=== PATIENT | male | born 1980 | race Caucasian/White ===

== ENCOUNTER → 2023-05-13 | Emergency (ER) | payer OTHER ==
[~2023-05-13] MED LIST: ASPIRIN 81 MG CHEWABLE TABLET ONE; ENOXAPARIN 80 MG/0.8 ML SQ ONE; Levofloxacin 750mg IV 0 MG/0 ML BAG IV ONE; NA CHLORIDE 0.9% 1,000 ML ONE; levoFLOXacin 750 MG TAB ONE
[2023-05-13 03:28] LABS: Protime INR 1.01
[2023-05-13 03:29] LABS: Hematocrit 44.2 % (39.6-49.0); Lymphocytes % 32.8 % (15.3-44.8); MCV 91.6 fL (80-100); MPV 6.9 fL (7.6-11.3); Platelets 287 thou/uL (152-406); RBC Red Blood Cell Count 4.83 M/uL (4.33-5.43)
[2023-05-13 05:04] LABS: ALT/SGPT 18 U/L (16-61); AST/SGOT 12 U/L (15-37); Albumin 3.7 g/dL (3.4-5.0); Alkaline Phosphatase 65 U/L (45-117); BUN Blood Urea Nitrogen 17 mg/dL (7-18); Bicarbonate 29 mEq/L (21-32); Bilirubin Direct 0.1 mg/dL (0-0.2); Bilirubin Indirect, Calculated 0.5 mg/dL (0.2-0.8); Bilirubin Total 0.6 mg/dL (0.2-1.0); C-Reactive Protein < 2.90 mg/L (<3.00); Glomerular Filtration Rate 96 ml/min (=/>90); Glucose Level 99 mg/dL (74-106); Magnesium 2.2 mg/dL (1.6-2.4); NT PRO-BNP 10 pg/mL (<125); Potassium 3.9 mEq/L (3.5-5.1); Protein, Total 7.1 g/dL (6.4-8.2); Sodium Level 136 mEq/L (136-145); Troponin High Sensitivity < 3.0 pg/mL (<58.9)
--- NOTE | 2023-05-13 08:02 | ER ---
Nurse's Notes [facility] Name: Cristino Fuentes Age: 43 yrs Sex: Male : 1980 Arrival Date: 05/13/2023 Time: 01:58 Bed 12 Private MD: Diagnosis: Pneumonia due to other specified bacteria-right lower lobe nodular opacities;Chest pain on breathing;Chest pain, unspecified Presentation: 05/13 02:42 Chief complaint: Patient states: Trying to fall asleep, feels like shocking in heart, vc1 recently diagnosed withy enlarged aortic valve and heart murmur. Coronavirus screen: Vaccine status: Patient reports being unvaccinated. Client denies travel out of the [place] in the last 14 days. At this time, the client does not indicate any symptoms associated with coronavirus-19. Ebola Screen: Patient negative for fever greater than or equal to 101.5 degrees Fahrenheit, and additional compatible Ebola Virus Disease symptoms Patient denies exposure to infectious person. Patient denies travel to an Ebola-affected area in the 21 days before illness onset. No symptoms or risks identified at this time. Initial Sepsis Screen: Does the patient meet any 2 criteria? No. Patient's initial sepsis screen is negative. Does the patient have a suspected source of infection? No. Patient's initial sepsis screen is negative. Risk Assessment: Do you want to hurt yourself or someone else? Patient reports no desire to harm self or others. Onset of symptoms was May 13, 2023. 02:42 Method Of Arrival: Ambulatory vc1 02:42 Acuity: VINCENT 3 vc1 Triage Assessment: 02:44 General: Appears in no apparent distress. comfortable, Behavior is cooperative, vc1 appropriate for age. Pain: Complains of pain in anterior aspect of left upper chest Pain does not radiate. Pain currently is 0 out of 10 on a pain scale. at worst was 9 out of 10 on a pain scale. Quality of pain is described as sharp, "shocking" Pain began suddenly, Aggravated by while trying to go to sleep. EENT: No deficits noted. No signs and/or symptoms were reported regarding the EENT system. Neuro: Level of Consciousness is awake, alert, obeys commands, Oriented to person, place, time, situation, Appropriate for age. Cardiovascular: Chest pain is described as severe. Respiratory: Airway is patent Respiratory effort is even, unlabored, Respiratory pattern is regular, symmetrical. GI: No deficits noted. No signs and/or symptoms were reported involving the gastrointestinal system. : No deficits noted. No signs and/or symptoms were reported regarding the genitourinary system. Derm: No deficits noted. No signs and/or symptoms reported regarding the dermatologic system. Musculoskeletal: No deficits noted. No signs and/or symptoms reported regarding the musculoskeletal system. Historical: - Allergies: 02:44 Ceclor; vc1 - PMHx: 02:44 enlarged aortic valve; Heart murmur; vc1 - PSHx: 02:44 None; vc1 - Immunization history:: Client reports receiving the 2nd dose of the Covid vaccine, Flu vaccine is not up to date. - Social history:: Smoking status: Patient/guardian denies using alcohol, IV drugs, tobacco products. - Family history:: not pertinent. Screenin:50 [facility] ED Fall Risk Assessment (Adult) History of falling in the last 3 months, vc1 including since admission No falls in past 3 months (0 pts) Confusion or Disorientation No (0 pts) Intoxicated or Sedated No (0 pts) Impaired Gait No (0 pts) Mobility Assist Device Used No (0 pt) Altered Elimination No (0 pt) Score/Fall Risk Level 0 - 2 = Low Risk Oriented to surroundings, Maintained a safe environment, Educated pt \\T\\ family on fall prevention, incl call for assistance when getting out of bed. Abuse screen: Denies threats or abuse. Nutritional screening: No deficits noted. Tuberculosis screening: No symptoms or risk factors identified. Assessment: 03:30 Reassessment: See triage assessment. vc1 05:00 Reassessment: No changes from previously documented assessment. Patient and/or family vc1 updated on plan of care and expected duration. Pain level reassessed. Patient is alert, oriented x 3, equal unlabored respirations, skin warm/dry/pink. 06:00 Reassessment: No changes from previously documented assessment. Patient and/or family vc1 updated on plan of care and expected duration. Pain level reassessed. Patient is alert, oriented x 3, equal unlabored respirations, skin warm/dry/pink. 07:30 Reassessment: Patient is alert, oriented x 3, equal unlabored respirations, skin aa5 warm/dry/pink. 08:20 Reassessment: Spoke to marialuisa Espinosa tech to come draw blood cultures, pt is a hard stick. aa5 . 08:50 Reassessment: Awaiting shift lab technician to draw blood cultures, pt is a hard stick. Spoke to aa5 Francisca shift lab technician. . 08:55 Reassessment: Patient is alert, oriented x 3, equal unlabored respirations, skin aa5 warm/dry/pink. Pt aware of wait time for blood culture draw. . 09:39 Reassessment: 4 unsuccessful attempts to obtain blood cultures, was notified and aa5 stated to cancel blood cultures. . 10:00 Reassessment: Patient is alert, oriented x 3, equal unlabored respirations, skin aa5 warm/dry/pink. Vital Signs: 02:42 BP 120 / 83; Pulse 75; Resp 17; Temp 97.5; Pulse Ox 99% ; Weight 77.11 kg; Height 6 ft. vc1 1 in. ; Pain 0/10; 06:54 BP 110 / 69; Pulse 80; Resp 16; Pulse Ox 100% on R/A; cg3 02:42 Body Mass Index 22.43 (77.11 kg, 185.42 cm) vc1 02:42 Pain Scale: Adult vc1 ED Course: 02:07 Patient arrived in ED. gm2 02:21 Kody Marks MD is Attending Physician. sp4 02:44 Triage completed. vc1 02:49 XRAY Chest (1 view) In Process Unspecified. EDMS 02:49 Arm band placed on right wrist. vc1 02:50 Patient has correct armband on for positive identification. Bed in low position. Call vc1 light in reach. Client placed on continuous cardiac and pulse oximetry monitoring. NIBP monitoring applied. 02:50 Patient maintains SpO2 saturation greater than 95% on room air. vc1 02:52 Radiology exam delayed due to lab results not completed at this time. (BUN/Creatinine) eh4 IV insertion attempt and/or patient not having appropriate IV at this time. 03:03 Inserted saline lock: 20 gauge in right antecubital area, using aseptic technique. [facility] Blood collected. 03:04 Influenza Screen (a \\T\\ B) Sent. [facility] 03:04 COVID-19 SARS RT PCR Sent. f 03:04 Basic Metabolic Panel Sent. [facility] 03:04 CBC with Diff Sent. f 03:05 LFT's Sent. f 03:05 Magnesium Sent. f 03:05 NT PRO-BNP Sent. f 03:05 PT-INR Sent. f 03:05 Troponin HS Sent. [facility] 03:44 Angela Muro, RN is Primary Nurse. vc1 06:16 Radiology exam delayed due to IV insertion attempt and/or patient not having eh4 appropriate IV at this time. 06:50 Inserted saline lock: 20 gauge in right upper arm, using aseptic technique. ultrasound vc1 guided. 07:11 CT Aorta for Dissection In Process Unspecified. EDMS 07:14 Attending Physician role handed off by Kody Marks MD sharona 07:14 Nathan Baldwin MD is Attending Physician. sharona 08:00 Paolo Lora is Hospitalizing Provider. sharona 08:14 Zach Kumar MD is Referral Physician. sharona 10:00 No provider procedures requiring assistance completed. aa5 10:00 IV discontinued, intact, bleeding controlled, No redness/swelling at site. Pressure aa5 dressing applied. Administered Medications: 03:48 Drug: NS 0.9% IV 1000 ml IV at 1 bolus Per protocol; 1000 mL bolus Route: IV; Rate: 1 vc1 bolus; Site: right antecubital; 07:24 Not Given (Physician Discretion): enoxaparin1 mg/kg Sub-Q once aa5 07:24 Not Given (Physician Discretion): Heparin (DVT/PE- Bolus per protocol) - [id number] aa5 units/kg IVP once; Max 8,000 units 08:02 Not Given (Duplicate Order): enoxaparin1 mg/kg Sub-Q once sharona 08:02 Not Given (Duplicate Order): [id number] mg 150 ml IVPB once over 90 mins sharona 08:35 Drug: Aspirin PO Chewable Tablet 162 mg PO once Route: PO; aa5 10:00 Follow up: Response: No adverse reaction aa5 10:00 Drug: LevOfloxacin PO 750 mg PO once Route: PO; aa5 10:00 Follow up: Response: Medication administered at discharge. aa5 Medication: 02:50 VIS not applicable for this client. vc1 Outcome: 08:01 Decision to Hospitalize by Provider. sharona 08:15 Discharge ordered by . sharona 10:05 Discharged to home ambulatory, aa5 10:05 Condition: stable 10:05 Discharge instructions given to patient, Instructed on discharge instructions, follow up and referral plans. medication usage, Demonstrated understanding of instructions, follow-up care, medications, Prescriptions given X 2, 10:05 Patient left the ED. aa5 Signatures: Dispatcher [employer] EDMS Nathan Baldwin MD MD cha Calderon, Audri RN RN aa5 Angela Muro RN RN 1 Vinay Rush 4 Kody Marks MD MD 4 Adri Lott 3 Michelle Stevens 2 Edith Bush [facility] Corrections: (The following items were deleted from the chart) 04:11 03:04 C-REACTIVE PROTEIN+C.LAB.BRZ drawn and sent. [facility] 09:10 08:50 Reassessment: Awaiting shift lab technician to draw blood cultures, pt is a hard stick. . aa5 aa5 10:21 10:21 Patient left the ED. aa5 aa5
--- NOTE | 2023-05-13 08:02 | EDPHYS ---
Physician Documentation [facility] Name: Cristino Fuentes Age: 43 yrs Sex: Male : 1980 Arrival Date: 05/13/2023 Time: 01:58 Bed 12 Private MD: VERONICA Physician Nathan Baldwin HPI: 05/13 02:22 This 43 yrs old Male presents to ER via Unassigned with complaints of Chest sp4 Pain, sharp chest pain while laying down. 04:29 Patient states that he has history of aortic arch aneurysm, this was diagnosed 1 year sp4 ago in [facility]. Since then patient was doing well and 1 week ago he developed pain on laying down just before bedtime. No exertional chest pain, no shortness of breath, no syncope, patient states pain occurs when he lays down before sleep at night, described as sharp stabbing midsternal pain. Patient also takes p.o. Valium daily for anxiety . Historical: - Allergies: 02:44 Ceclor; vc1 - PMHx: 02:44 enlarged aortic valve; Heart murmur; vc1 - PSHx: 02:44 None; vc1 - Immunization history:: Client reports receiving the 2nd dose of the Covid vaccine, Flu vaccine is not up to date. - Social history:: Smoking status: Patient/guardian denies using alcohol, IV drugs, tobacco products. - Family history:: not pertinent. ROS: 04:29 Constitutional: Negative for fever, chills, and weight loss, positive positional chest sp4 pain 04:29 All other systems are negative, Exam: 04:29 Constitutional: This is a well developed, well nourished patient who is awake, alert, sp4 and in no acute distress. Head/Face: Normocephalic, atraumatic. Eyes: Pupils equal round and reactive to light, extra-ocular motions intact. Lids and lashes normal. Conjunctiva and sclera are not injected. Cornea within normal limits. Periorbital areas with no swelling, redness, or edema. ENT: Nares patent. No nasal discharge, no septal abnormalities noted. Tympanic membranes are normal and external auditory canals are clear. Oropharynx with no redness, swelling, or masses, exudates, or evidence of obstruction, uvula midline. Mucous membranes moist. Neck: Trachea midline, no thyromegaly or masses palpated, and no cervical lymphadenopathy. Supple, full range of motion without nuchal rigidity, or vertebral point tenderness. Chest/axilla: Normal chest wall appearance and motion. Nontender with no deformity. No lesions are appreciated. Cardiovascular: Regular rate and rhythm with a normal S1 and S2. No gallops, murmurs, or rubs. Normal PMI, no JVD. No pulse deficits. Respiratory: Lungs have equal breath sounds bilaterally, clear to auscultation and percussion. No rales, rhonchi or wheezes noted. No increased work of breathing, no retractions or nasal flaring. Abdomen/GI: Soft, non-tender, with normal bowel sounds. No distension or tympany. No guarding or rebound. No evidence of tenderness throughout. Back: No spinal tenderness. No costovertebral tenderness. Skin: Warm, dry with normal turgor. Normal color with no rashes, no lesions, and no evidence of cellulitis. MS/ Extremity: Pulses equal, no cyanosis. Neurovascular intact. Full, normal range of motion. Neuro: Awake and alert, GCS 15, oriented to person, place, time, and situation. Cranial nerves II-XII grossly intact. Motor strength 5/5 in all extremities. Sensory grossly intact. Psych: Awake, alert, with orientation to person, place and time. Behavior, mood, and affect are within normal limits 04:29 ECG was reviewed by the Attending Physician. EKG time 0 236 is normal sinus rhythm, sp4 rate 73 Vital Signs: 02:42 BP 120 / 83; Pulse 75; Resp 17; Temp 97.5; Pulse Ox 99% ; Weight 77.11 kg; Height 6 ft. vc1 1 in. ; Pain 0/10; 06:54 BP 110 / 69; Pulse 80; Resp 16; Pulse Ox 100% on R/A; cg3 02:42 Body Mass Index 22.43 (77.11 kg, 185.42 cm) vc1 02:42 Pain Scale: Adult vc1 MDM: 02:25 Patient medically screened. sp4 04:33 ED course: EXAM: XR Chest, 1 View CLINICAL HISTORY: CHEST PAIN TECHNIQUE: Frontal view sp4 of the chest. COMPARISON: No relevant prior studies available. FINDINGS: Lungs: Unremarkable. No consolidation. Pleural space: Unremarkable. No pneumothorax. Heart: Unremarkable. No cardiomegaly. Mediastinum: Unremarkable. Normal mediastinal contour. Bones/joints: Unremarkable. No acute fracture. IMPRESSION: No acute disease. . 07:04 Data reviewed: vital signs, nurses notes, lab test result(s), EKG, radiologic studies, [facility] CT scan, plain films. 07:05 HEART Score: History: Slightly Suspicious (0), ECG: Normal (0), Age: < or = 45 years sp4 (0), Risk Factors: No Risk Factors Known (0), Troponin: < or = 1 x Normal Limit (0), Total Score = 0. The patient was not given aspirin in the Emergency Department. Not indicated due to patient's past medical history. Transition of care: After a detail discussion of the patient's case, care is transferred to Nathan Baldwin MD. 05/13 02:22 Order name: Basic Metabolic Panel; Complete Time: 05:55 4 05/13 02:22 Order name: CBC with Diff; Complete Time: 04:25 [facility] 05/13 02:22 Order name: LFT's; Complete Time: 05:55 [facility] 05/13 02:22 Order name: Magnesium; Complete Time: 05:55 [facility] 05/13 02:22 Order name: NT PRO-BNP; Complete Time: 05:55 [facility] 05/13 02:22 Order name: PT-INR; Complete Time: 04:25 4 05/13 02:22 Order name: Troponin HS; Complete Time: 05:55 4 05/13 02:27 Order name: COVID-19 SARS RT PCR; Complete Time: 04:25 [facility] 05/13 02:27 Order name: Influenza Screen (a \T\ B); Complete Time: 04:25 [facility] 05/13 04:11 Order name: C-Reactive Protein; Complete Time: 05:55 EDMS 05/13 02:22 Order name: XRAY Chest (1 view) [facility] 05/13 02:40 Order name: CT Aorta for Dissection; Complete Time: 08:12 [facility] 05/13 08:17 Order name: INCENTIVE SPIROMETRY [facility] 05/13 02:22 Order name: EKG; Complete Time: 02:23 [facility] 05/13 02:22 Order name: Cardiac monitoring; Complete Time: 02:51 sp4 05/13 02:22 Order name: EKG - Nurse/Tech; Complete Time: 02:51 sp4 05/13 02:22 Order name: IV Saline Lock; Complete Time: 03:06 sp4 05/13 02:22 Order name: Labs collected and sent; Complete Time: 03:06 sp4 05/13 02:22 Order name: O2 Per Protocol; Complete Time: sp4 05/13 02:22 Order name: O2 Sat Monitoring; Complete Time: : sp4 EC:29 Rate is 73 beats/min. Rhythm is regular, Normal Sinus Rhythm. QRS [place] is Normal. NM sp4 interval is normal. QRS interval is normal. QT interval is normal. No Q waves. T waves are Normal. No ST changes noted. Clinical impression: Normal ECG. Interpreted by me. Reviewed by me. Administered Medications: 03:48 Drug: NS 0.9% IV 1000 ml IV at 1 bolus Per protocol; 1000 mL bolus Route: IV; Rate: 1 vc1 bolus; Site: right antecubital; 07:24 Not Given (Physician Discretion): enoxaparin1 mg/kg Sub-Q once aa5 07:24 Not Given (Physician Discretion): Heparin (DVT/PE- Bolus per protocol) - [id number] aa5 units/kg IVP once; Max 8,000 units 08:02 Not Given (Duplicate Order): enoxaparin1 mg/kg Sub-Q once sharona 08:02 Not Given (Duplicate Order): [id number] mg 150 ml IVPB once over 90 mins sharona 08:35 Drug: Aspirin PO Chewable Tablet 162 mg PO once Route: PO; aa5 10:00 Follow up: Response: No adverse reaction aa5 10:00 Drug: LevOfloxacin PO 750 mg PO once Route: PO; aa5 10:00 Follow up: Response: Medication administered at discharge. aa5 Disposition Summary: 05/13/23 08:15 Discharge Ordered Notes: Location: Home(05/13/23 08:15) sharona Problem: new(05/13/23 08:15) sharona Symptoms: have improved(05/13/23 08:15) sharona Condition: Stable(05/13/23 08:15) sharona Diagnosis - Pneumonia due to other specified bacteria - right lower lobe nodular opacities sharona - Chest pain on breathing(05/13/23 08:15) sharona - Chest pain, unspecified sharona Followup: sharona - With: Private Physician - When: 2 - 3 days - Reason: Recheck today's complaints, Continuance of care, Re-evaluation by your physician Followup: sharona - With: Zach Kumar MD - When: 2 - 3 days - Reason: Recheck today's complaints, Re-evaluation by your physician Discharge Instructions: - Discharge Summary Sheet sharona - Nonspecific Chest Pain, Adult sharona - Community-Acquired Pneumonia, Adult sharona - How to Use an Incentive Spirometer sharona - Nonspecific Chest Pain, Adult, [id number] sharona - Community-Acquired Pneumonia, Adult, [id number] sharona - Aspirin and Your Heart sharona Forms: - Medication Reconciliation Form sharona - Thank You Letter sharona - Antibiotic Education sharona - Prescription Opioid Use hsarona - Patient Portal Instructions sharona - Leadership Thank You Letter sharona Prescriptions: - Ibuprofen 600 mg Oral Tablet - take 1 tablet ORAL route every 6 hours As needed take with food; 30 tablet; sharona Refills: 0, Product Selection Permitted - levofloxacin 750 mg Oral tablet - take 1 tablet ORAL route once daily; 10 tablet; Refills: 0, Product Selection sharona Permitted Signatures: Dispatcher [employer] EDMS Nathan Baldwin MD MD cha Calderon, Audri RN RN aa5 Angela Muro RN RN vc1 Kody Marks MD MD sp4 Corrections: (The following items were deleted from the chart) 04:11 02:27 C-REACTIVE PROTEIN+C.LAB.BRZ ordered. EDMS EDMS 07:51 07:16 Extrem Venous W Compression Timmy+US.RAD.BRZ ordered. EDMS EDMS 08:01 08:01 Observation sharona sharona 08:01 08:01 Paolo Lora sharona sharona 08:01 08:01 Telemetry/MedSurg (observation) sharona sharona 08:01 08:01 Stable sharona sharona 08:01 08:01 new sharona sharona 08:01 08:01 have improved sharona sharona 08:01 08:01 Standard sharona sharona 08:01 08:01 sharona sharona 08:01 08:01 Chest pain on breathing sharona sharona 08:01 08:01 Hypoxemia sharona sharona 08:01 08:01 Pleural effusion in other conditions classified elsewhere sharona sharona 08:12 07:57 BLOOD CULTURE*+BA.LAB.BRZ ordered. EDMS EDMS 08:12 07:57 LACTATE+C.LAB.BRZ ordered. EDMS EDMS 08:12 08:02 BLOOD CULTURE*+BA.LAB.BRZ reviewed. sharona EDMS 09:42 08:13 BLOOD CULTURE*+BA.LAB.BRZ ordered. EDMS EDMS
--- NOTE | 2023-05-13 08:03 | RAD REPORT ---
EXAM DESCRIPTION: CT - Angio Aorta For Dissection - 05/13/2023 7:09 am CLINICAL HISTORY: chest pain COMPARISON: Chest Single View dated 05/13/2023 TECHNIQUE: Thin axial CT images of the chest, abdomen, and pelvis were obtained during administratio n of 100mL Isovue 370 IV contrast. Sagittal and coronal reconstructions as well as maximal intensity projection reconstruction were generated and reviewed per an aortic angiography protocol. All CT scans are performed using dose optimization technique as appropriate and may include automated exposure control or mA/KV adjustment according to patient size. FINDINGS: Aorta is normal in diameter with no dissection or other acute aortic findings. Reconstruct ion images show no significant findings. Pulmonary arteries are normal as well. Lobulated peripheral right lower lobe opacities, somewhat linear in a contiguous fashion, see axial i mage 83 among others. These may represent residua of an infectious process, and/ or bronchial mucous impaction. No pleural thickening, pleural effusion or pneumothorax. No abnormal mediastinal or hilar mass or lymphadenopathy seen. No chest wall mass or abnormal axillar y lymphadenopathy. Celiac, SMA and renal arteries show no suspicious findings. Solid abdominal viscera and bowel show no significant findings. No mass or abnormal lymphadenopathy. IMPRESSION: No acute abnormalities on CT angiogram of the aorta. No other acute findings. Lobulated peripheral right lower lobe nodular opacities, suggesting residua of an infectious process and/or bronchial mucous impaction.
[2023-05-13 11:04] VITALS: BP 110/69; TEMP 97.5; O2SAT 100
--- NOTE | 2023-05-13 13:10 | RAD REPORT ---
EXAM DESCRIPTION: RAD - Chest Single View - 05/13/2023 2:47 am CLINICAL HISTORY: CHEST PAIN TECHNIQUE: Frontal view of the chest. COMPARISON: No relevant prior studies available. FINDINGS: Lungs: Unremarkable. No consolidation. Pleural space: Unremarkable. No pneumothorax. Heart: Unremarkable. No cardiomegaly. Mediastinum: Unremarkable. Normal mediastinal contour. Bones/joints: Unremarkable. No acute fracture. IMPRESSION: No acute disease. Electronically signed by: Jayshree Russell MD 05/13/2023 03:22 AM LPN RN HOSPICE Due to temporary technical issues with the PACS/Fluency reporting system, reports are being signed by the in house radiologist without review as a courtesy to ensure prompt reporting. The interpreting r adiologist is fully responsible for the content of the report.
--- NOTE | 2023-05-13 16:26 | EKG ---
Test Date: 2023-05-13 Test Time: 02:36:06 Carcass Splitter: TORIE MEASUREMENT RESULTS: Intervals: Rate: 73 LA: 132 QRSD: 78 QT: 384 QTc: 423 Malone: P: 57 LA: 132 QRS: 89 T: 50 INTERPRETIVE STATEMENTS: Normal sinus rhythm Normal ECG No previous ECG available for comparison Electronically Signed On 05-13-23 16:24:56 TITLE SUPERVISOR by Cody Grant
== END ==
LOC: ER 01:58
DX: J15.8 Pneumonia due to other specified bacteria (principal); R07.1 Chest pain on breathing; R01.1 Cardiac murmur, unspecified; Z88.1 Allergy status to other antibiotic agents
CPT/HCPCS: 93005; 85025; 80048; 36415; 83735; 85610; 80076; 84484; 83880; 87635; 86140; 87804 ×2; 71275; 74175; 71045; 99285; Q9967; J7030